=== PATIENT | female | born 1995 | race Caucasian/White ===

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

== ENCOUNTER 2017-06-25 21:52 | Emergency (ER) | payer OTHER ==
[~2017-06-25] VITALS: Ht 165.1 cm; Wt 60.0 kg
[~2017-06-25 21:52] MED LIST changes: +BACT800T5 PO; +ONDA8TAB7 PO; +PROM25TA5 PO; -Z.0.NO CURRENT MEDS
[2017-06-25 21:53] VITALS: BP 130/85; PULSE 80; RESP 16; TEMP 98.6; O2SAT 99
== END 2017-06-26 00:56 | disposition left against medical advice (07) ==
LOC: NED 21:52
DX: R10.9 Unspecified abdominal pain (principal); Z53.21 Procedure and treatment not carried out due to patient leaving prior to being seen by health care provider
CPT/HCPCS: 99281